=== PATIENT | female | born 1980 | race Caucasian/White ===

== ENCOUNTER → 2018-04-02 | Outpatient (CLI) | payer MEDICARE, OTHER ==
[2018-04-02 15:12] LABS: Basophils % (A) 0 %; Eosinophils # (A) 0.1 k/uL (0-0.7); Eosinophils % (A) 2 %; HCT 45.2 % (34.0-46.0); Lymphocytes # (A) 1.4 k/uL (1.0-4.8); Lymphocytes % (A) 21 %; MCH 29.1 pg (25.0-35.0); MCHC 30.9 g/dL (31.0-37.0); MCV 94.2 fL (80.0-100.0); Mean Platelet Volume 6.9; Monocytes # (A) 0.4 k/uL (0-1.0); Monocytes % (A) 6 %; Neutrophils # (A) 4.5 k/uL (1.3-7.7); Neutrophils % (A) 70 %; Platelet Count 226 k/uL (150-450); RDW 12.9 % (11.5-15.5); WBC 6.4 k/uL (3.8-10.6)
[2018-04-02 15:20] LABS: ALT 20 U/L (9-52); AST 19 U/L (14-36); Albumin 4.3 g/dL (3.5-5.0); Alkaline Phosphatase 68 U/L (38-126); Anion Gap 6 mmol/L; Blood Urea Nitrogen 8 mg/dL (7-17); Calcium 9.4 mg/dL (8.4-10.2); Carbon Dioxide 30 mmol/L (22-30); Chloride 103 mmol/L (98-107); Glucose 79 mg/dL (74-99); Potassium 4.4 mmol/L (3.5-5.1); Sodium 139 mmol/L (137-145); Total Bilirubin 0.6 mg/dL (0.2-1.3)
[2018-04-02 19:01] LABS: Vitamin D 25 Hydroxy 24.3 ng/mL (30.0-100.0)
== END | disposition home or self-care (01) ==
LOC: LABWHC1 14:38
PROVIDERS: ATTEND Nurse Practitioner Acute Care
DX: E55.9 Vitamin D deficiency, unspecified (principal); R53.83 Other fatigue; R41.3 Other amnesia
CPT/HCPCS: 36415; 80053; 82180; 82306; 82607; 84207; 85025

== ENCOUNTER → 2018-04-30 | Outpatient (CLI) | payer MEDICARE, OTHER ==
--- NOTE | 2018-05-01 07:31 | MR ---
EXAMINATION TYPE: MR lumbar spine wo con DATE OF EXAM: 04/30/2018 COMPARISON: None at this institution. HISTORY: Low back pain per order. Pain for years into bilateral buttocks and thighs per patient. TECHNIQUE: Multiplanar, multisequence imaging of the lumbar spine is performed without IV contrast. FINDINGS: Sagittal images of the lumbar spine show vertebral body heights to appear satisfactory. The re is subtle grade 1 anterolisthesis of L5 on S1 measuring 7 mm lung posterior vertebral body margin. There is disc desiccation L5-S1 level with mild to moderate posterior disc space narrowing otherwise the intervertebral discs demonstrate normal heights and hydration. No large posterior disc herniatio ns are seen on sagittal images. The conus medullaris is normal in position and signal ending at mid L1 level. The bone marrow signal intensity is within normal limits. No significant spurring is seen. Axial images show the T12-L1, L1-L2, L2-L3, L3-L4, and L4-L5 levels all to appear within normal limit s. Axial images at the L5-S1 level confirmed bilateral L5 pars defects. Spondylolisthesis and pseudodisc herniation. Spinal canal is minimally effaced anteriorly. There is moderate to severe bilateral neur al foraminal narrowing encroachment on both L5 nerves on sagittal images 3 and 11 respectively. IMPRESSION: Bilateral pars defects L5 level with spondylolisthesis causing moderate to severe bilater al neural foraminal narrowing and encroachment on both L5 nerves.
--- NOTE | 2018-05-13 13:53 | MR ---
EXAMINATION TYPE: MR brain/cspine wo/w DATE OF EXAM: 04/30/2018 COMPARISON: Outside MRI cervical spine report April 14, 2016 and outside MRI brain report March 18, 2014 and April 14, 2016. After multiple attempts, only outside imaging reports could be obtained HISTORY: MS / Neck pain, pain and stiffness TECHNIQUE: Multiplanar, multisequence images of the cervical spine, brain, and brainstem are all performed witho ut and with IV contrast, utilizing 6 mL intravenous Gadavist gadolinium contrast is administered intr avenously. Demyelinating disease protocol with additional Sagittal Flair sequence performed of brain and brainstem and PD sagittal sequence of cervical spine acquired.. FINDINGS: BRAIN: T2 Lesions Present : Yes Approximate Number of Lesions: Approximately 10 Locations Identified : Predominately periventricular Size of Reference Lesion(s): 1. 7 x 7 x 6 mm left parietal periventricular lesion with surrounding lower T2 hyperintensity on axia l image 21 and sagittal image 14 appears to be dominant lesion Enhancing Lesion(s) Present: Yes heterogeneous rim enhancement of this dominant lesion noted. No defi nitive additional enhancing lesions. T1 Hypointense Lesion(s) Present: Yes Change from Prior: N/A Diffusion weighted images demonstrate no evidence of a recent infarct or other diffusion abnormality. There is no worrisome extra-axial fluid collection. The ventricular system and cisternal spaces ar e normal in size and appearance. The brain volume is age appropriate. Midline structures demonstrate normal morphology. The craniocervical junction appears within normal limits. Post contrast images demonstrate no abnormal enhancement. The dural venous sinuses appear pa tent. Mild mucosal thickening involving ethmoid and bilateral maxillary sinuses is present. IMPRESSION: Rim-enhancing 7 mm lesion left parietal occipital periventricular region may correspond t o new lesion discussed on most recent brain MRI report. No enhancing cerebellar lesion clearly seen o n current study Mild underlying white matter changes otherwise seen as detailed above. C-SPINE: FINDINGS: Sagittal images of the cervical spine show the craniocervical junction to appear within nor mal limits. The cervical and upper thoracic spinal cord is normal in course and caliber there is sub tle T2 hyperintense lesion superior C2 level sagittal image 7 and superior C4 level same image along posterior aspect of spinal cord. I suspect an elongated T2 hyperintense lesion centered C5-C6 disc s pace level sagittal image 8. All lesions are seen best on PD sagittal sequence. No enhancing lesions are clearly identified. Alignment is anatomic. The vertebral body and intravertebral disk heights ar e normal. No suspicious posterior disc herniations are seen. The bone marrow signal intensity is wit hin normal limits. No significant spurring is noted. Axial images show there is no significant focal disk disease, spinal canal stenosis, neural foraminal narrowing, or spinal cord compromise at any cervical level. No suspicious enhancement is present. Fo tesfaye right paracentral slightly T2 hyperintense lesion superior C4 level is confirmed near axial image 37. There may be additional small subtle T2 hyperintense lesion centrally axial image 25 near mid C5 vertebra. There is far lateral right-sided lesion centered C5-C6 disc space narrowing axial image 22 confirmed. There is suspected subtle peripheral right sided superior C6 lesion axial image 19. IMPRESSION: Identified 5 subtle lesions or multiple sclerosis involvement in the cervical spinal cord as detailed above. This is more numerous versus prior report perhaps interval progression versus ariane nge in technique. No enhancing lesions are present.
== END | disposition home or self-care (01) ==
LOC: RADMRIMAIN 11:10
PROVIDERS: ATTEND Nurse Practitioner Acute Care
DX: M99.73 Connective tissue and disc stenosis of intervertebral foramina of lumbar region (principal); M43.16 Spondylolisthesis, lumbar region; M89.9 Disorder of bone, unspecified; G93.9 Disorder of brain, unspecified; R90.89 Other abnormal findings on diagnostic imaging of central nervous system; M54.2 Cervicalgia; G35 Multiple sclerosis; Z88.0 Allergy status to penicillin; Z88.1 Allergy status to other antibiotic agents; Z88.2 Allergy status to sulfonamides
CPT/HCPCS: 70553; 72148; 72156; A9585

== ENCOUNTER → 2021-03-01 | Outpatient (CLI) | payer MEDICARE, OTHER ==
[2021-03-01 15:42] LABS: Basophils # (A) 0.02 X 10*3/uL (0.00-0.10); Basophils % (A) 0.4 %; Eosinophils # (A) 0.12 X 10*3/uL (0.04-0.35); Eosinophils % (A) 2.2 %; HCT 43.2 % (37.2-46.3); HGB 13.6 g/dL (12.0-15.0); Lymphocytes # (A) 0.19 X 10*3/uL (0.90-5.00); Lymphocytes % (A) 3.5 %; MCH 31.1 pg (27.0-32.0); MCHC 31.5 g/dL (32.0-37.0); MCV 98.6 fL (80.0-97.0); Mean Platelet Volume 10.4 fL (9.5-12.2); Monocytes # (A) 0.46 X 10*3/uL (0.20-1.00); Monocytes % (A) 8.6 %; Neutrophils # (A) 4.55 X 10*3/uL (1.80-7.70); Neutrophils % (A) 84.9 %; Platelet Count 205 X 10*3/uL (140-440); RBC 4.38 X 10*6/uL (4.10-5.20); RDW 13.5 % (11.5-14.5); WBC 5.36 X 10*3/uL (4.50-10.00)
[2021-03-01 17:48] LABS: Erythrocyte Sedimentation Rate 7 mm/Hr (0-20)
[2021-03-01 18:49] LABS: Ferritin 78.7 ng/mL (10.0-291.0)
[2021-03-01 18:50] LABS: Folate, Serum 8.6 ng/mL
[2021-03-01 19:01] LABS: % Iron Saturation 23.42 (12.00-45.00); ALT 14 U/L (8-44); AST 16 U/L (13-35); African American GFR (CKD) 107.6 (60.0-200.0); Alkaline Phosphatase 74 U/L (41-126); C Reactive Protein <0.4 mg/dL (0.0-0.8); Calcium 9.2 mg/dL (8.7-10.3); Carbon Dioxide 23.1 mmol/L (21.6-31.8); Chloride 110 mmol/L (96-109); Creatine Kinase 38 U/L (26-186); Globulin 2.2 g/dL (1.6-3.3); Glucose 77 mg/dL (70-110); Iron 63 ug/dL (50-170); Non-African American GFR(CKD) 92.9 (60.0-200.0); Potassium 3.6 mmol/L (3.5-5.5); Sodium 141 mmol/L (135-145); Total Bilirubin 0.4 mg/dL (0.3-1.2); Total Iron Binding Capacity 269 ug/dL (228-460); Total Protein 6.6 g/dL (6.2-8.2)
== END | disposition home or self-care (01) ==
LOC: LABWHC1 09:37
PROVIDERS: ATTEND Nurse Practitioner Acute Care
DX: E55.9 Vitamin D deficiency, unspecified (principal); I49.9 Cardiac arrhythmia, unspecified
CPT/HCPCS: 36415; 80053; 82085; 82306; 82550; 82607; 82728; 82746; 83540; 83550; 84207; 84466; 85025; 85652; 86038; 86140; 93005

== ENCOUNTER → 2021-04-03 | Outpatient (CLI) | payer MEDICARE, OTHER ==
[2021-04-03 16:21] LABS: Basophils # (A) 0.06 X 10*3/uL (0.00-0.10); Eosinophils # (A) 0.13 X 10*3/uL (0.04-0.35); Eosinophils % (A) 2.2 %; HCT 38.8 % (37.2-46.3); HGB 12.6 g/dL (12.0-15.0); Lymphocytes # (A) 1.56 X 10*3/uL (0.90-5.00); Lymphocytes % (A) 26.2 %; MCHC 32.5 g/dL (32.0-37.0); MCV 98.5 fL (80.0-97.0); Mean Platelet Volume 10.2 fL (9.5-12.2); Monocytes # (A) 0.46 X 10*3/uL (0.20-1.00); Monocytes % (A) 7.7 %; Neutrophils # (A) 3.73 X 10*3/uL (1.80-7.70); Neutrophils % (A) 62.6 %; Platelet Count 241 X 10*3/uL (140-440); RBC 3.94 X 10*6/uL (4.10-5.20); RDW 13.9 % (11.5-14.5); WBC 5.96 X 10*3/uL (4.50-10.00)
== END | disposition home or self-care (01) ==
LOC: LABWHC1 10:07
PROVIDERS: ATTEND Nurse Practitioner Acute Care
DX: D72.810 Lymphocytopenia (principal)
CPT/HCPCS: 36415; 85025

== ENCOUNTER → 2022-02-19 | Outpatient (CLI) | payer MEDICARE, OTHER ==
[2022-02-19 14:45] LABS: Basophils # (A) 0.03 X 10*3/uL (0.00-0.10); Basophils % (A) 0.4 %; Eosinophils # (A) 0.12 X 10*3/uL (0.04-0.35); Eosinophils % (A) 1.8 %; HCT 41.4 % (37.2-46.3); HGB 13.3 g/dL (12.0-15.0); Immature Grans, Automated 0.3 %; Lymphocytes # (A) 0.39 X 10*3/uL (0.90-5.00); Lymphocytes % (A) 5.8 %; MCH 31.7 pg (27.0-32.0); MCHC 32.1 g/dL (32.0-37.0); MCV 98.6 fL (80.0-97.0); Mean Platelet Volume 10.4 fL (9.5-12.2); Monocytes # (A) 0.52 X 10*3/uL (0.20-1.00); Monocytes % (A) 7.7 %; NRBC Per 100 WBC 0 /100 WBCS (0.0-0.0); Neutrophils # (A) 5.63 X 10*3/uL (1.80-7.70); Platelet Count 208 X 10*3/uL (140-440); RDW 13.2 % (11.5-14.5); WBC 6.71 X 10*3/uL (4.50-10.00)
[2022-02-19 14:54] LABS: Hepatitis A Antibody IgM Nonreactive (Nonreactive); Hepatitis B Core IgM Nonreactive (Nonreactive); Hepatitis B Surface Antigen Nonreactive (Nonreactive); Hepatitis C IgG Antibody Nonreactive (Nonreactive)
[2022-02-19 16:05] LABS: African American GFR (CKD) 116.5 (60.0-200.0); Albumin 4.3 g/dL (3.8-4.9); Albumin/Globulin Ratio 1.95 (1.60-3.17); Anion Gap 9.6 mmol/L (10.00-18.00); BUN/Creat Ratio 14.23 Ratio (12.00-20.00); Blood Urea Nitrogen 10.6 mg/dL (9.0-27.0); Calcium 8.9 mg/dL (8.7-10.3); Carbon Dioxide 21.7 mmol/L (20.0-27.5); Globulin 2.2 g/dL (1.6-3.3); Non-African American GFR(CKD) 100.5 (60.0-200.0); Total Bilirubin 0.5 mg/dL (0.30-1.20); Total Protein 6.5 g/dL (6.2-8.2)
== END | disposition home or self-care (01) ==
LOC: LABWHC1 09:07
PROVIDERS: ATTEND Nurse Practitioner Acute Care
DX: E55.9 Vitamin D deficiency, unspecified (principal); E53.9 Vitamin B deficiency, unspecified; G35 Multiple sclerosis; G43.909 Migraine, unspecified, not intractable, without status migrainosus; H93.19 Tinnitus, unspecified ear; M79.7 Fibromyalgia
CPT/HCPCS: 36415; 80053; 80074; 82306; 82607; 84207; 85025